=== PATIENT | male | born 1965 | race Caucasian/White ===

== ENCOUNTER 2018-11-10 18:19 | Emergency (ER) | payer MEDICAID ==
[~2018-11-10] VITALS: Ht 167.6 cm; Wt 75.0 kg
[2018-11-10] MEDS ORDERED: TRAM50TA4 PO (18:34)
[2018-11-10] MEDS ORDERED: GABA-533 PO (18:34)
[2018-11-10] MEDS ORDERED: LISI-662 PO (18:35)
[2018-11-10] MEDS ORDERED: METF-960 PO (18:35)
[2018-11-10] MEDS ORDERED: ATOR20TA86 PO (18:35)
[2018-11-10] MEDS ORDERED: ATEN50TA PO (18:35)
[2018-11-10] MEDS ORDERED: ASPI81 PO (18:35)
[2018-11-10 18:39] LABS: GLUCOSE,POINT OF CARE 251 MG/DL (70-110)
[2018-11-10] MEDS ORDERED: KETOROLAC TROMETHAMINE 30 MG/ML VIAL IM ONE (19:30)
[2018-11-10 21:05] VITALS: BP 134/85
== END 2018-11-10 21:11 | disposition home or self-care (01) ==
LOC: EMS 18:21
DX: M65.4 Radial styloid tenosynovitis [de Quervain] (principal); M54.2 Cervicalgia; E11.9 Type 2 diabetes mellitus without complications; I10 Essential (primary) hypertension; F41.9 Anxiety disorder, unspecified; F17.210 Nicotine dependence, cigarettes, uncomplicated; Z79.82 Long term (current) use of aspirin; Z79.899 Other long term (current) drug therapy; Z79.84 Long term (current) use of oral hypoglycemic drugs
CPT/HCPCS: 29125; 73110; 82962; 96372; 99283; 99406; J1885; 29280

== ENCOUNTER 2020-03-04 20:17 | Emergency (ER) | payer MEDICAID, OTHER ==
[~2020-03-04] VITALS: Ht 172.7 cm; Wt 84.1 kg
[~2020-03-04 20:17] MED LIST: ASPI-728 PO; ATEN-72 PO; ATOR20TA86 PO; BUPR1FIL5 SL; GABA-1201 PO; LISI-662 PO; METF-960 PO; TRAM50TA4 PO
[2020-03-04] MEDS ORDERED: BUPR1FIL3 SL (20:31)
[2020-03-04] MEDS ORDERED: ASPI-1111 PO (20:31)
[2020-03-04 22:07] LABS: BASOPHILS % (AUTO) 0.4 % (0.0-2.0); EOSINOPHILS % (AUTO) 5.3 % (1.0-6.0); HEMATOCRIT 24.4 % (41-53); HEMOGLOBIN 8.5 g/dL (13.5-17.5); LYMPHOCYTES % (AUTO) 32.4 % (22.0-44.0); MEAN CORPUSCULAR HEMOGLOBIN 30.4 pg (26.0-34.0); MEAN CORPUSCULAR HGB CONC 34.6 G/dL (31.0-37.0); MEAN CORPUSCULAR VOLUME 88 fL (80-100); MONOCYTES # (AUTO) 0.6 K/uL (0.1-1.0); MONOCYTES % (AUTO) 9.5 % (2.0-9.0); NEUTROPHILS # (AUTO) 3.3 K/uL (1.8-7.7); NEUTROPHILS % (AUTO) 52.4 % (40.0-70.0); PLATELET COUNT (AUTO) 209 K/uL (150-450); RED BLOOD CELL COUNT(AUTO) 2.78 MIL/uL (4.50-5.90); RED CELL DISTRIBUTION WIDTH 13.2 % (11.5-14.5)
[2020-03-04 22:20] LABS: ANION GAP 7 mmol/L (8-16); CALCIUM, TOTAL 9.2 mg/dL (8.8-10.5); CARBON DIOXIDE 28 mmol/L (22-29); CHLORIDE 97 mmol/L (98-107); CREATININE 1.86 mg/dL (0.60-1.30); GLOMERULAR FILTR. RATE CALC 38 mL/min (>60); GLUCOSE,RANDOM 91 mg/dL (70-110); POTASSIUM 4.3 mmol/L (3.5-5.1); SODIUM SERUM 132 mmol/L (136-145); UREA NITROGEN, BLOOD 30 mg/dL (7-18)
[2020-03-04 22:33] LABS: ALANINE AMINOTRANSFERASE 31 U/L (12-78); ALBUMIN 3.1 g/dL (3.4-5.0); ALKALINE PHOSPHATASE 100 U/L (46-116); ASPARTATE AMINOTRANSFERASE 19 U/L (15-37); BILIRUBIN,TOTAL 0.4 mg/dL (0.1-1.0); TOTAL PROTEIN, SERUM 6.8 g/dL (6.4-8.2)
[2020-03-04] MEDS ORDERED: SODIUM CHLORIDE 0.9% 1,000 ML IV ONE ×2 (23:30)
[2020-03-04] MEDS ORDERED: ACETAMINOPHEN 325 MG TABLET PO PRN (23:30)
[2020-03-04] MEDS ORDERED: OxyCODONE HCL/ACETAMINOPHEN 5-325 MG TABLET PO PRN (23:30)
[2020-03-04 23:46] LABS: B-TYPE NATRIURETIC PEPTIDE 19 pg/mL (0-100)
[2020-03-04 23:51] LABS: CREATINE KINASE, TOTAL ONLY 145 U/L (39-308)
[2020-03-05 02:00] VITALS: BP 114/59
[2020-03-05] MEDS ORDERED: FAMOTIDINE 20 MG TABLET PO SCH (09:00)
[2020-03-05] MEDS ORDERED: DOCUSATE SODIUM 100 MG CAPSULE PO SCH (09:00)
== END 2020-03-05 02:17 | disposition left against medical advice (07) ==
LOC: EMS 20:19 → 4E 23:27 → UNDOADMIN 23:27 → EMS 03-05 02:17
DX: N17.9 Acute kidney failure, unspecified (principal); E11.9 Type 2 diabetes mellitus without complications; E78.00 Pure hypercholesterolemia, unspecified; I10 Essential (primary) hypertension; F17.210 Nicotine dependence, cigarettes, uncomplicated; F11.90 Opioid use, unspecified, uncomplicated; Z79.84 Long term (current) use of oral hypoglycemic drugs; Z79.899 Other long term (current) drug therapy
CPT/HCPCS: 36415; 71045; 80053; 82550; 82962; 83880; 84484; 85025; 93005; 99285; G0480; J7030